=== PATIENT | female | born 1975 | race Caucasian/White ===

== ENCOUNTER → 2017-02-02 | Outpatient (CLI) | payer BC ==
[2016-03-20 13:29] VITALS: BP 116/60
--- NOTE | 2017-02-05 10:08 | MRI ---
HISTORY: Cervicalgia Study: MRI cervical spine without contrast Comparison: None Technique: Multiplanar multisequence MRI of the cervical spine was obtained utilizing standard depar tmental protocol. Findings: Alignment of the cervical spine is normal. No abnormal cord or marrow signal is identified. Verteb ral body heights are preserved without evidence of fracture. The prevertebral and paraspinal soft ti ssues are unremarkable. There is mild spondylosis and disc desiccation throughout the cervical spin e. C2 -- C3: No significant stenosis identified. C3 -- C4: No significant stenosis identified. C4 -- C5: No significant stenosis identified. C5 -- C6: Minimal uncovertebral spurring, greater on the left without significant stenosis identifie d. C6 -- C7: Mild central disc osteophyte complex and bilateral uncovertebral spurring without signific ant stenosis identified. C7 -- T1: No significant stenosis identified. IMPRESSION: There is mild spondylosis and disc desiccation throughout the cervical spine. No significant spinal or foraminal stenosis identified. Reported By:
== END ==
LOC: RAD 08:27
PROVIDERS: ATTEND Internal Medicine
DX: M54.2 Cervicalgia (principal); R20.2 Paresthesia of skin; M47.892 Other spondylosis, cervical region
CPT/HCPCS: 72141

== ENCOUNTER → 2017-02-23 | Outpatient (CLI) | payer BC ==
[2016-03-20 13:29] VITALS: BP 116/60
--- NOTE | 2017-02-27 07:02 | MRI ---
HISTORY: Wedge compression fracture. Patient fell 3 weeks ago Study: Noncontrast MRI of the lumbar spine Comparison: No priors Technique: Multiplanar multi-sequence MRI of the lumbar spine was obtained. Sagittal T1, sagittal T 2, and stir weighted images, axial T1, and axial T2 images were obtained. Findings: There is a chronic appearing anterior wedge compression deformity at the T11 level with a large uppe r endplate Schmorl's node. The T11 vertebral body is reduced to about 67% of the adjacent T12 verteb ral body centrally. No significant retropulsion of bony elements is seen. A subacute compression fracture is present at the L4 level. This is without significant retropulsion of bony elements. The central height of the L4 vertebral body is reduced to 49% of the adjacent L3 vertebral body height. Increased marrow signal is present on STIR images compatible with a subacute fracture. There is some minimal paraspinous fluid at the L4 level. The conus terminates normally. T12 -- L1: Minimal tiny midline disc bulge. No central spinal stenosis or lateral foraminal stenosis is seen. L1 -- L2: Unremarkable L2 -- L3: Mild disc desiccation with moderate midline disc protrusion. No nerve root impingement, ce ntral spinal stenosis or lateral foraminal stenosis is seen. L3 -- L4: Moderate midline disc protrusion. No nerve root impingement or central spinal stenosis or lateral foraminal stenosis is seen. L4 -- L5: Subacute vertebral body compression fracture as noted above. There is minimal left paracen tral disc protrusion. No nerve root impingement or foraminal stenosis is seen. L5 -- S1: Small midline disc protrusion. No nerve root impingement, central spinal stenosis or later al foraminal stenosis is seen. IMPRESSION: Subacute compression fracture at the L4 level without retropulsion of bony elements. A minimal left paracentral disc protrusion is appreciated at the L4-5 level also. No nerve root impingement is seen . Chronic appearing upper endplate compression fracture with Schmorl's node at T11. No retropulsion of bony elements is seen. Reported By:
== END ==
LOC: RAD 10:41
PROVIDERS: ATTEND Internal Medicine
DX: S32.040A Wedge compression fracture of fourth lumbar vertebra, initial encounter for closed fracture (principal); X58.XXXA Exposure to other specified factors, initial encounter
CPT/HCPCS: 72148

== ENCOUNTER → 2017-08-29 | Outpatient (CLI) | payer BC ==
[2016-03-20 13:29] VITALS: BP 116/60
--- NOTE | 2017-08-30 09:04 | MRI ---
MRI right wrist without contrast Indication: Sharp right wrist pain Comparison: None Technique: Multiplanar multi sequence MR images of the right wrist were obtained without contrast. Findings: Examination is mildly limited due to large field of view. The marrow signal bony alignment are within normal limits, without evidence for acute fracture or subluxation. No significant joint sp nico narrowing or arthropathy. No joint effusion. The TFC is grossly intact. There is mildly increased fluid adjacent to the extensor carpi the radialis tendons at the level of the carpus. Remaining tend ons are unremarkable. The carpal tunnel and median nerve are grossly normal. Impression: Findings of mild extensor carpi radialis tenosynovitis. Otherwise essentially unremarkable MRI of the wrist. Reported By:
== END | disposition home or self-care (01) | DRG 556 ==
LOC: RAD 14:34
PROVIDERS: ATTEND Internal Medicine
DX: M25.531 Pain in right wrist (principal); M65.88 Other synovitis and tenosynovitis, other site
CPT/HCPCS: 73221

== ENCOUNTER → 2018-01-04 | Outpatient (CLI) | payer BC ==
[2016-03-20 13:29] VITALS: BP 116/60
--- NOTE | 2018-01-07 08:50 | MRI ---
Indication: Osteogenesis imperfecta and degenerative disc disease. Exam: MRI lumbar spine without contrast. Technique: Routine multiplanar multi sequence imaging was performed through the lumbar spine without contrast. Comparison: 02/23/2017 Findings: The lumbar vertebra are well aligned. There is a moderate anterior wedge compression fractu re of T11 with prominent Schmorl's node along the superior endplate which is unchanged. No displaced or retropulsed fragment is seen. There is a moderate to severe wedge compression fracture of L4 which appears more compressed with no edema in the bone marrow and no displaced or retropulsed fragment se en. The conus is normal . There is a moderate central disc bulge at T12-L1 causing moderate dural sac effacement which is unchanged. There is a moderate central protrusion at L2-3 causing moderate anter ior dural sac effacement which is unchanged. There is a mild to moderate broad-based protrusion centr ally at L3-4 which lateralizes to the left and is causing some mild neuroforaminal narrowing on the l eft which is unchanged. There is a moderate central broad-based protrusion at L4-5 causing moderate d ural sac effacement. There is a small central disc bulge at L5-S1 which is unchanged. There are moder ate hypertrophic changes of the facets throughout with no significant spinal stenosis. The paraverteb ral soft tissues are normal with no pars defects. Impression: Moderately severe old compression fracture of L4 which appears slightly more compressed from the prio r study with no displaced or retropulsed fragment. Moderate old compression fracture of T11 which is unchanged with no retropulsed fragment. Moderate multilevel degenerative disc disease with no acute bony abnormality. Moderate central protrusions at T12-L1, L2-3 , L3-4 , and L4-5 which are unchanged Small disc bulge centrally at L5-S1 which is unchanged . Moderate osteoarthritic changes of the facets throughout with no significant spinal stenosis. Reported By:
== END ==
LOC: RAD 14:38
PROVIDERS: ATTEND Internal Medicine
DX: Q78.0 Osteogenesis imperfecta (principal); M51.36 Other intervertebral disc degeneration, lumbar region
CPT/HCPCS: 72148